=== PATIENT | male | born 1985 | race Caucasian/White ===

== ENCOUNTER 2017-02-14 10:47 | Emergency (ER) | payer OTHER ==
[2017-02-14 14:02] LABS: Hematocrit 52 % (42-52); Hemoglobin 18.3 g/dl (14.0-18.0); Mean Corpuscular HGB Conc 35 g/dl (31-36); Mean Corpuscular Hemoglobin 32 pg (27-31); Mean Corpuscular Volume 92 fL (80-94); Mean Platelet Volume 7 um3 (7.4-10.4); Red Blood Count 5.67 10^6/ul (4.0-5.4); Red Cell Distribution Width 13 % (10.5-15); White Blood Count 9.2 10^3/ul (3.5-10.8)
[2017-02-14 14:04] LABS: Add Diff/Slide Review? Slide Review Added; Comments Flag Yes
[2017-02-14 14:21] LABS: ALT 33 U/L (7-52); AST 28 U/L (13-39); Albumin 4.9 g/dL (3.2-5.2); Alkaline Phosphatase 52 U/L (34-104); Anion Gap 8 mmol/L (2-11); Blood Urea Nitrogen 16 mg/dL (6-24); CO2 Carbon Dioxide 26 mmol/L (22-32); Calcium 9.8 mg/dL (8.6-10.3); Chloride 103 mmol/L (101-111); EGFR African American 95.7 (>60); EGFR Non-African American 74.4 (>60); Globulin 3.3 g/dL (2-4); Glucose 94 mg/dL (70-100); Sodium 137 mmol/L (133-145); Total Protein 8.2 g/dL (6.4-8.9)
[2017-02-14 14:33] LABS: Acetaminophen < 15 mcg/mL; Alcohol < 10 mg/dL (<10); Salicylate < 2.50 mg/dL (<30)
[2017-02-14 14:40] LABS: TSH (Thyroid Stimulating Horm) 2.07 mcIU/mL (0.34-5.60)
[2017-02-14 15:23] VITALS: BP 128/67
--- NOTE | 2017-02-14 22:35 | ED ---
Meghana Case Erika, scribed for Rex Brown MD on 02/14/17 at 1342 . Psychiatric Complaint - HPI Summary HPI Summary: Patient is a 31-year-old male presenting to the ED with a CC of panic attacks for the past few weeks. Patient reports a Hx generalized anxiety disorder for the past 10 years. He states he had panic attacks in the past, which felt like his heart was racing. Pt denies panic attack for the past year, until the past few weeks. Pt discontinued use of propranolol about 1 year ago after anxiety improved. He started taking it again last week after panic attacks had returned. Now, he describes panic attacks as chest tightness and lightheadedness , which he states is different than before. He states symptoms are not improved by relaxation methods that worked in the past. Pt is followed by Dr. Avalos. - History Of Current Complaint Chief Complaint: EDGeneral Time Seen by Provider: 02/14/17 13:20 Accompanied By: Alone Hx Obtained From: Patient Onset/Duration: Gradual Onset, Lasting Weeks - 3 weeks, Still Present Severity Currently: Moderate Character: Anxious Alleviating Factor(s): Nothing Related History: Positive For: Prior Psychiatric Issues Has Suicidal: Denies: Thoughts - Allergies/Home Medications Allergies/Adverse Reactions: Allergies Allergy/AdvReac Type Severity Reaction Status Date / Time No Known Allergies Allergy Verified 02/14/17 11:00 PMH/Surg Hx/FS Hx/Imm Hx Cardiovascular History: Denies: Hx Pacemaker/ICD Sensory History: Denies: Hx Hearing Aid Psychiatric History: Reports: Hx Anxiety, Hx Panic Disorder - Surgical History Surgery Procedure, Year, and Place: WISDOM TEETH Infectious Disease History: No Infectious Disease History: Denies: Traveled Outside the [place] in Last 30 Days - Family History Known Family History: Positive: Cardiac Disease - Grandfather - Social History Occupation: Employed Full-time Alcohol Use: Daily Hx Substance Use: No Substance Use Type: Reports: None Hx Tobacco Use: Yes Smoking Status (MU): Current Every Day Smoker Review of Systems Cardiovascular: Other - chest tightness Neurological: Other - lightheadedness Positive: Anxious All Other Systems Reviewed And Are Negative: Yes Physical Exam Triage Information Reviewed: Yes Vital Signs On Initial Exam: Initial Vitals Temp Pulse Resp BP Pulse Ox 97.8 F 67 18 139/86 98 02/14/17 11:00 02/14/17 11:00 02/14/17 11:00 02/14/17 11:00 02/14/17 11:00 Vital Signs Reviewed: Yes Appearance: Positive: Well-Appearing, No Pain Distress Skin: Positive: Warm, Skin Color Reflects Adequate Perfusion, Dry Head/Face: Positive: Normal Head/Face Inspection Eyes: Positive: Normal ENT: Positive: Normal ENT inspection Neck: Positive: Supple, Nontender Respiratory/Lung Sounds: Positive: Clear to Auscultation, Breath Sounds Present Cardiovascular: Positive: RRR Abdomen Description: Positive: Nontender, Soft Bowel Sounds: Positive: Present Musculoskeletal: Positive: Normal Neurological: Positive: Normal Psychiatric: Positive: Affect/Mood Appropriate - Rossi Coma Scale Coma Scale Total: 15 Diagnostics - Vital Signs Vital Signs Temp Pulse Resp BP Pulse Ox 02/14/17 12:52 98.3 F 93 16 129/90 100 02/14/17 12:50 97.8 F 68 16 129/90 99 02/14/17 11:00 97.8 F 67 18 139/86 98 - Laboratory Lab Results: Lab Results 02/14/17 02/14/17 Range/Units 13:55 13:55 WBC 9.2 (3.5-10.8) 10^3/ul RBC 5.67 H (4.0-5.4) 10^6/ul Hgb 18.3 H (14.0-18.0) g/dl Hct 52 (42-52) % MCV 92 (80-94) fL MCH 32 H (27-31) pg MCHC 35 (31-36) g/dl RDW 13 (10.5-15) % Plt Count 246 (150-450) 10^3/ul MPV 7 L (7.4-10.4) um3 Neut % (Auto) 65.8 (38-83) % Lymph % (Auto) 27.0 (25-47) % [place] % (Auto) 5.2 (1-9) % Eos % (Auto) 1.5 (0-6) % Baso % (Auto) 0.5 (0-2) % Absolute Neuts (auto) 6.1 (1.5-7.7) 10^3/ul Absolute Lymphs (auto) 2.5 (1.0-4.8) 10^3/ul Absolute Monos (auto) 0.5 (0-0.8) 10^3/ul Absolute Eos (auto) 0.1 (0-0.6) 10^3/ul Absolute Basos (auto) 0 (0-0.2) 10^3/ul Absolute Nucleated RBC 0.01 10^3/ul Nucleated RBC % 0.1 Sodium 137 (133-145) mmol/L Potassium 4.0 (3.5-5.0) mmol/L Chloride 103 (101-111) mmol/L Carbon Dioxide 26 (22-32) mmol/L Anion Gap 8 (2-11) mmol/L BUN 16 (6-24) mg/dL Creatinine 1.14 (0.67-1.17) mg/dL Est GFR ( Amer) 95.7 (>60) Est GFR (Non-Af Amer) 74.4 (>60) BUN/Creatinine Ratio 14.0 (8-20) Glucose 94 (70-100) mg/dL Calcium 9.8 (8.6-10.3) mg/dL Total Bilirubin 0.80 (0.2-1.0) mg/dL AST 28 (13-39) U/L ALT 33 (7-52) U/L Alkaline Phosphatase 52 (34-104) U/L Total Protein 8.2 (6.4-8.9) g/dL Albumin 4.9 (3.2-5.2) g/dL Globulin 3.3 (2-4) g/dL Albumin/Globulin Ratio 1.5 (1-3) TSH 2.07 (0.34-5.60) mcIU/mL Salicylates < 2.50 (<30) mg/dL Acetaminophen < 15 mcg/mL Serum Alcohol < 10 (<10) mg/dL Result Diagrams: 02/14/17 13:55 02/14/17 13:55 Lab Statement: Any lab studies that have been ordered have been reviewed, and results considered in the medical decision making process. - EKG 13:30 Cardiac Rate: NL - at 60 bpm EKG Rhythm: Sinus Rhythm ST Segment: Non-Specific Re-Evaluation - Re-Evaluation First Eval Re-Evaluation Time: 14:45 Comment: Discussed results and plan of care with patient. Course/Dx - Course Course Of Treatment: I found nothing metabolic going on with Mr. Bourdon. He doesn't tolerate SSRI's and I will try a short course of Buspar which works pretty quickly and has a low side effect profile. He will F/U with Dr. Avalos. - Differential Dx/Clinical Impression Provider Diagnosis: Anxiety Discharge - Discharge Plan Condition: Stable Disposition: HOME Prescriptions: busPIRone TAB* [Buspar TAB*] 7.5 mg PO BID #20 tab Patient Education Materials: Anxiety (ED) Referrals: Alejandro Avalos MD [Medical Doctor] - Additional Instructions: Please follow up with Dr. Avalos The documentation as recorded by the Meghana adams Erika accurately reflects the service I personally performed and the decisions made by me, Rex Brown MD.
== END 2017-02-14 15:21 | disposition home or self-care (01) ==
LOC: ED 10:47
DX: F41.9 Anxiety disorder, unspecified (principal); R42 Dizziness and giddiness; F17.210 Nicotine dependence, cigarettes, uncomplicated
CPT/HCPCS: 36415; 80053; 80320; 80329; 84443; 85025; 93005; 99282; G0480

== ENCOUNTER 2017-09-09 13:38 | Emergency (ER) | payer OTHER ==
[2017-09-09 13:47] VITALS: BP 159/101
--- NOTE | 2017-09-09 14:15 | UC ---
Knee Pain HPI - HPI Summary HPI Summary: Pt presents with for left knee pain. He tells me that last night he was moving a couch and knelt down to adjust the legs, when he went from a kneel to a standing position he felt a "popping" sensation in his left knee accompanied by immediate pain just below his patella. The pain went away within minutes and he was able to ambulate without difficulty. He has a history of knee trauma and ligament tears on his RIGHT knee, but reports no injury or hx on his left knee. Has been using a knee brace and resting his knee as much as possible since yesterday - mild pain today. Denies fever, chills, SOB, chest pain, abdominal pain, N/V/D/C, numbness, or tingling. - History of Current Complaint Chief Complaint: UCLowerExtremity Stated Complaint: KNEE INJURY Time Seen by Provider: 09/09/17 14:05 Hx Obtained From: Patient Onset/Duration: Sudden Onset Severity Initially: Moderate Severity Currently: Mild Pain Intensity: 2 Pain Scale Used: 0-10 Numeric Character: Sharp, Dull, Aching Aggravating Factor(s): Movement, Weight Bearing Alleviating Factor(s): Rest Able to Bear Weight: Yes - Allergies/Home Medications Allergies/Adverse Reactions: Allergies Allergy/AdvReac Type Severity Reaction Status Date / Time No Known Allergies Allergy Verified 09/09/17 13:47 Home Medications: Home Medications Propranolol TAB* [Inderal TAB*] 20 mg PO DAILY 09/09/17 [History Confirmed 09/09] clonazePAM TAB(*) [Klonopin TAB(*)] 0.5 mg PO TID PRN 09/09/17 [History Confirmed 09/09/17] PMH/Surg Hx/FS Hx/Imm Hx Previously Healthy: Yes - Surgical History Surgical History: Yes Surgery Procedure, Year, and Place: WISDOM TEETH - Family History Known Family History: Positive: Cardiac Disease - Grandfather - Social History Occupation: Employed Full-time Lives: With Family Alcohol Use: Daily Substance Use Type: None Smoking Status (MU): Current Some Day Smoker Type: Cigars Cessation Counseling: Counseled 3+Min - 10 Min Review of Systems Constitutional: Negative Skin: Negative Respiratory: Negative Cardiovascular: Negative Neurovascular: Negative Musculoskeletal: Other: - Left knee pain Neurological: Negative Psychological: Negative All Other Systems Reviewed And Are Negative: Yes Physical Exam Triage Information Reviewed: Yes Appearance: Well-Appearing, Well-Nourished Vital Signs: Initial Vital Signs Temp 97.9 F 09/09/17 13:43 Pulse 87 09/09/17 13:43 Resp 21 09/09/17 13:43 BP 159/101 09/09/17 13:43 Pulse Ox 98 09/09/17 13:43 Vital Signs Reviewed: Yes Neck: Positive: Supple, Nontender, No Lymphadenopathy Respiratory: Positive: Chest non-tender, Lungs clear, Normal breath sounds, No respiratory distress, No accessory muscle use Cardiovascular: Positive: RRR, No Murmur, Pulses Normal Musculoskeletal: Positive: Strength Intact, ROM Intact, Edema @ - Left knee inferior patella and increased patella fluctuation within the joint space., Other: - TTP over inferior patella. No obvious bony deformities. No patella apprehension. Negative Kapil, A/P drawer, Lacho, and varus/valgus stress. Neurological: Positive: Alert, Muscle Tone Normal Psychological: Positive: Age Appropriate Behavior Skin: Positive: Other - No ecchymosis.. Negative: rashes, significant lesion(s) Knee Pain Course/Dx - Course Course Of Treatment: Left knee XR - 1. No radiographic evidence for traumatic injury. 2. 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 In absence of prior exams to document stability with no relevant exams available on the [facility] PACS consider reassessment with radiographs in 6 months time. Continue using knee brace and ambulate as tolerated. F/u with ortho in 1-2 weeks. Ibuprofen alternating with tylenol for pain. - Differential Dx/Diagnosis Differential Diagnosis/HQI/PQRI: Dislocation, Fracture (Closed), Internal Derangement Of Knee, Patellofemoral Syndrome, Sprain, Strain Provider Diagnoses: Internal derangement of the left knee Discharge - Discharge Plan Condition: Stable Disposition: HOME Patient Education Materials: Knee Sprain (ED) Forms: *Work Release Referrals: Alejandro Avalos MD [Primary Care Provider] - John Valladares MD [Medical Doctor] - As Soon As Possible Additional Instructions: If you develop a fever, SOB, chest pain, new or worsening symptoms - please call your PCP or go to the ED. Your blood pressure was high at todays visit. Please see your primary provider within 4 weeks for recheck and re-evaluation. Please call the number below to follow up with Orthopedics within 1-2 weeks.
--- NOTE | 2017-09-09 15:05 | RAD ---
Indication: Pain below anterior patella after being on knees. Comparison: No relevant prior exams available on the [facility] [place]. Technique: LEFT knee: AP, tunnel, lateral, sunrise views. Report: Negative for joint effusion, fracture, or malalignment. Small medially oriented osteochondroma at the proximal metaphysis of the fibula. Unremarkable soft tissue contours. IMPRESSION: 1. No radiographic evidence for traumatic injury. 2. 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 In absence of prior exams to document stability with no relevant exams available on the [facility] consider reassessment with radiographs in 6 months time.
== END 2017-09-09 15:25 | disposition home or self-care (01) ==
LOC: UCEAST 13:38
DX: S89.92XA Unspecified injury of left lower leg, initial encounter (principal); X50.0XXA Overexertion from strenuous movement or load, initial encounter; Y93.89 Activity, other specified; Y92.9 Unspecified place or not applicable; Z71.6 Tobacco abuse counseling; F17.290 Nicotine dependence, other tobacco product, uncomplicated
CPT/HCPCS: 99211; G0463

== ENCOUNTER 2018-06-24 12:29 | Emergency (ER) | payer OTHER ==
--- NOTE | 2018-06-24 12:47 | ED ---
Lower Extremity - HPI Summary HPI Summary: Patient is a 33-year-old male who presents emergency department for right knee pain that started during the night. Preceded who said he has had numerous tears to his right knee without surgery. Patient states that he is unaware of any injury last night but states he does drink heavily. Patient states pain is intermittent and sharp in nature. Ambulation movement makes symptoms worse. Rest makes symptoms better. Symptoms are mild in severity. Past medical history of anxiety. - History of Current Complaint Chief Complaint: EDExtremityLower Stated Complaint: RT KNEE PAIN Time Seen by Provider: 06/24/18 12:45 Hx Obtained From: Patient Pain Intensity: 1 - Allergies/Home Medications Allergies/Adverse Reactions: Allergies Allergy/AdvReac Type Severity Reaction Status Date / Time No Known Allergies Allergy Verified 06/24/18 12:42 PMH/Surg Hx/FS Hx/Imm Hx Previously Healthy: Yes Endocrine/Hematology History: Denies: Hx Diabetes Cardiovascular History: Denies: Hx Hypertension, Hx Pacemaker/ICD History: Denies: Hx Renal Disease Sensory History: Denies: Hx Hearing Aid Psychiatric History: Reports: Hx Anxiety, Hx Panic Disorder - ANXIETY - Surgical History Surgery Procedure, Year, and Place: WISDOM TEETH Infectious Disease History: No Infectious Disease History: Denies: Hx Clostridium Difficile, Hx Hepatitis, Hx Human Immunodeficiency Virus (HIV), Hx of Known/Suspected MRSA, Hx Shingles, Hx Tuberculosis, Hx Known/ Suspected VRE, Hx Known/Suspected VRSA, History Other Infectious Disease, Traveled Outside the in Last 30 Days - Family History Known Family History: Positive: Cardiac Disease - Grandfather - Social History Occupation: Employed Full-time Lives: With Family Alcohol Use: Daily Hx Substance Use: No Substance Use Type: Reports: None Hx Tobacco Use: Yes Smoking Status (MU): Current Some Day Smoker Type: Cigars Review of Systems Positive: Other - right knee pain Neurological: Negative Negative: Weakness, Paresthesia, Numbness All Other Systems Reviewed And Are Negative: Yes Physical Exam Triage Information Reviewed: Yes Vital Signs On Initial Exam: Initial Vitals Temp Pulse Resp BP Pulse Ox 97.7 F 87 16 128/85 97 06/24/18 12:40 06/24/18 12:40 06/24/18 12:40 06/24/18 12:40 06/24/18 12:40 Vital Signs Reviewed: Yes Appearance: Positive: Well-Appearing - Patient sitting in chair in no acute distress. Skin: Positive: Warm, Dry Head/Face: Positive: Normal Head/Face Inspection Eyes: Positive: Normal, EOMI Neck: Positive: Supple Musculoskeletal: Positive: Other - Minimal pain noted on palpation to the medial aspect of the right knee. No increase in laxity. No effusion. No calf pain. No increased warmth, erythema overlying the knee. No signs of trauma. Neurological: Positive: Normal, CN Intact II-III Psychiatric: Positive: Affect/Mood Appropriate Diagnostics - Vital Signs Vital Signs Temp Pulse Resp BP Pulse Ox 06/24/18 12:40 97.7 F 87 16 128/85 97 - Laboratory Lab Statement: Any lab studies that have been ordered have been reviewed, and results considered in the medical decision making process. Lower Extremity Course/Dx - Course Course Of Treatment: Patient presenting with knee pain times one day without definite injury. Exam is relatively unremarkable. X-ray is negative for acute findings, reading per radiology. Patient is concerned that he will not be getting an MRI of his knee today. Explained to patient there is no emergent reason to obtain MRI of right knee today given atruamatic knee pain x one day. Explained to him he can follow up with orthopedics or her PCP for further evaluation and possible outpatient MRI. Patient notes he is having difficulty bearing weight on right knee area Will place on crutches and patient would like and Troy wrap. Advised to ice and elevate. Anti-inflammatories for pain as directed. To call PCP orthopedics today for close follow-up appointment. - Diagnoses Differential Diagnosis/HQI/PQRI: Positive: Bursitis, Contusion, Dislocation, Fracture (Closed), Sprain, Strain Provider Diagnoses: Knee pain Discharge - Sign-Out/Discharge Documenting (check all that apply): Patient Departure - Discharge Plan Condition: Good Disposition: HOME Patient Education Materials: Knee Sprain (ED) Forms: *Work Release Referrals: Alejandro Avalso MD [Primary Care Provider] - Flakita Cummings MD [Medical Doctor] - Additional Instructions: Schedule a follow up appointment with PCP or orthopedics for evaluation if pain persist Ice and elevate Activity as tolerated NSAIDS for pain as directed Return to ER if symptoms change or worsen - Billing Disposition and Condition Condition: GOOD Disposition: Home
--- NOTE | 2018-06-24 14:19 | RAD ---
Indication: Right knee injury. 4 views of the right knee demonstrates no fracture or dislocation. No other bone or joint abnormality is noted. IMPRESSION: No fracture of the right knee is noted.
[2018-06-24 15:14] VITALS: BP 148/90
== END 2018-06-24 15:13 | disposition home or self-care (01) ==
LOC: ED 12:29
DX: M25.561 Pain in right knee (principal); F41.9 Anxiety disorder, unspecified; F17.290 Nicotine dependence, other tobacco product, uncomplicated
CPT/HCPCS: 99282